=== PATIENT | female | born 1980 | race Asian ===

== ENCOUNTER → 2017-07-01 10:00 | Outpatient (CLI) | payer OTHER, SELFPAY ==
[2017-07-01 11:19] LABS: Vitamin D,25 Hydroxy 22.2 ng/mL (29.95-100.01)
[2017-07-04 11:42] LABS: HPV Reflexed? NOT INDICATED
== END ==
PROVIDERS: Visit Provider Obstetrics & Gynecology
DX: Z12.4 Encounter for screening for malignant neoplasm of cervix (principal); E55.9 Vitamin D deficiency, unspecified
CPT/HCPCS: 36415; 82306; 88175; G0145

== ENCOUNTER 2020-05-25 02:14 | Outpatient (RCR) | payer OTHER, SELFPAY | END 2020-07-31 23:59 | LOC: IMMUN 02:14 | PROVIDERS: Visit Provider Internal Medicine | DX: Z23 Encounter for immunization (principal) | CPT/HCPCS: 0001A; 0002A; 91300 ==

== ENCOUNTER → 2021-01-23 10:58 | Outpatient (CLI) | payer OTHER, SELFPAY | PROVIDERS: PCP Internal Medicine; Visit Provider Family Medicine | DX: Z23 Encounter for immunization (principal) | CPT/HCPCS: 0004A; 91300 ==

== ENCOUNTER → 2024-09-20 | Outpatient (CLI) | payer OTHER, SELFPAY ==
--- NOTE | 2024-09-20 09:20 | CER_PTH ---
PATIENT: GIULIA CORADO LOC: [facility] U#:[id number] AGE/SX: 44/F ROOM: RE09/20/[address]: Dr. Renea Sanders MD : 1980 BED: DIS: 09/20/2024 SPEC #: [id number] RECD: 09/20/24 12:23 STATUS: JASEN REMarita #: [id number] VIOLETA: 09/20/24 09:[address]: Renea Sanders DEPT: SURGICAL PATHOLOGY RECD BY: Topher Arambula ENTERED: 09/20/24 12:46 SP TYPE: CERV OTHR DR: Dr. Low Lugo MD Tissues: A - Uterine cervix, NOS Procedures: Surgery Specimen Level IV HEADER OPERATION: Cervical polyp removal PRE-OP DIAGNOSIS: Cervical polyp TISSUE SUBMITTED: A- Cervical polyp MICROSCOPIC DIAGNOSIS A. Cervix, polyp, excision: * Benign endocervical polyp MICROSCOPIC DESCRIPTION Slides are reviewed. GROSS DESCRIPTION A. Received in formalin labeled with the patient's name and date of is a 1.3 x 0.6 x 0.2 cm garcia-pink polypoid tissue fragment admixed with mucoid material and additional flecks of tissue, collectively measuring 2.3 x 1.2 x 0.2 cm in aggregate. Entirely submitted in 1 cassette. CA 09/20/2024 CPT:[id number]
[2024-09-23 11:08] LABS: HPV APTIMA, High Risk Negative (Negative)
== END | disposition home or self-care (01) ==
PROVIDERS: PCP Internal Medicine; Referring Provider Obstetrics & Gynecology; Visit Provider Obstetrics & Gynecology
DX: N84.1 Polyp of cervix uteri (principal)
CPT/HCPCS: 87624; 88175; 88305; G0145

== ENCOUNTER → 2024-11-07 | Outpatient (CLI) | payer OTHER, SELFPAY ==
[2024-11-07 09:36] LABS: Hematocrit 41.7 % (37-47); Hemoglobin 13.8 g/dL (12.0-15.0); Immature Granulocytes Count 0.010 X10^3/uL (0.0-0.0); Mean Corp Hgb Conc 33.1 g/dL (32-36); Mean Corpuscular Volume 93.3 fL (81-99); Mean Platelet Vol. 10.6 fl (6.2-12.0); NRBC Flagged by Analyzer 0 % (0-5); Platelet Count 195 K/mm3 (150-450); RBC Distribution Width CV 11.6 % (11.6-14.6); RBC Distribution Width SD 39.2 fl (35.1-43.9); Red Blood Count 4.47 M/mm3 (4.2-5.4); White Blood Count 5.5 K/mm3 (4.4-11.0)
[2024-11-07 11:10] LABS: AST(SGOT) 17 U/L (<=31); Alanine Aminotransfer ALT/SGPT 16 U/L (<=34); Albumin, Serum 4.5 g/dL (3.5-5.0); Alkaline Phosphatase 42 U/L (35-104); Anion Gap 10 (5-15); BUN 16 mg/dL (4-19); BUN/Creat Ratio 20.9 RATIO (10-20); Calcium,Total 9.0 mg/dL (7.6-11.0); Carbon Dioxide 24.3 mmol/L (21.0-32.0); Chloride 104 mmol/L (98-108); Cholesterol 161 mg/dL (<=200); Globulin 2.8 g/dL (2.2-4.2); Glucose 94 mg/dL (70-99); Low Density Lipoprotein Calc. 88 mg/dL; Potassium 3.8 mmol/L (3.3-5.1); Triglycerides 60 mg/dL; Very Low Density Lipoprotein 12 mg/dL (5-40); Vitamin D,25 Hydroxy 28.4 ng/mL (30-100); cholesterol:hdl ratio screen 2.62
== END | disposition home or self-care (01) ==
LOC: BWCLAB 08:08
PROVIDERS: PCP Internal Medicine; Referring Provider Obstetrics & Gynecology; Visit Provider Obstetrics & Gynecology
DX: Z00.00 Encounter for general adult medical examination without abnormal findings (principal); Z13.29 Encounter for screening for other suspected endocrine disorder; Z13.1 Encounter for screening for diabetes mellitus; Z13.21 Encounter for screening for nutritional disorder; Z13.220 Encounter for screening for lipoid disorders
CPT/HCPCS: 36415; 80053; 80061; 82306; 83036; 84443; 85025

== ENCOUNTER → 2024-11-07 | Outpatient (CLI) | payer OTHER, SELFPAY ==
--- NOTE | 2024-11-07 07:30 | BI_ITS ---
EXAM: SCRN MAMM (CAD)W/ANDREW BILAT DATE: 11/07/2024 CLINICAL HISTORY: F, Age 44 y/o , SCREENING MAMMOGRAM TECHNIQUE: Procedure Code: [id number] Modality: MG Procedure: SCRN MAMM (CAD)W/ANDREW BILAT COMPARISON: None. This is a baseline mammogram. FINDINGS: TISSUE DENSITY: The breasts are extremely dense, which lowers the sensitivity of mammography. Bilateral Breast Mammographic Findings: No significant masses, calcifications or other abnormalities are identified. Benign-appearing round microcalcifications are seen in both breasts. BI/SCRN MAMM (CAD)W/ANDREW BILAT IMPRESSION: Benign screening mammogram. OVERALL FINAL ASSESSMENT BI-RADS 2: BENIGN RECOMMENDATION: Routine annual follow-up in 1 Year A letter with findings and recommendations will be mailed to the patient. Reading Location: [id number]
== END | disposition home or self-care (01) ==
LOC: OPBI 07:28
PROVIDERS: PCP Internal Medicine; Referring Provider Obstetrics & Gynecology; Visit Provider Obstetrics & Gynecology
DX: Z12.31 Encounter for screening mammogram for malignant neoplasm of breast (principal)
CPT/HCPCS: 77063; 77067